=== PATIENT | male | born 1990 | race Caucasian/White ===

== ENCOUNTER 2017-01-02 22:09 | Emergency (ER) | payer BC ==
--- NOTE | 2017-01-02 22:37 | ER Document Report ---
HPI - HPI Patient complains to provider of: sore throat Onset: Yesterday Onset/Duration: Sudden Quality of pain: Achy Severity: Severe Pain Level: 4 Context: Patient presents emergency department with complaints of sore throat for the past day and a half. He also reports he feels weak. Is unsure of fever denies vomiting diarrhea. 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 He is also worried that he may have GC chlamydia because he had oral sex recently. Denies penile discharge or testicular pain. Associated Symptoms: None Exacerbated by: Denies Relieved by: Denies Similar symptoms previously: No Recently seen / treated by doctor: No - DERM Skin Color: Normal, [place] Past Medical History - General Information source: Patient - Social History Smoking Status: Current Every Day Smoker Cigarette use (# per day): Yes Chew tobacco use (# tins/day): No Frequency of alcohol use: None Drug Abuse: None Family History: Reviewed & Not Pertinent Patient has suicidal ideation: No Patient has homicidal ideation: No - Medical History Medical History: Negative Renal/ Medical History: Denies: Hx Peritoneal Dialysis Surgical Hx: Negative Vertical Provider Document - CONSTITUTIONAL Agree With Documented VS: Yes Exam Limitations: No Limitations General Appearance: WD/WN, No Apparent Distress - INFECTION CONTROL TRAVEL OUTSIDE OF THE [place] IN LAST 30 DAYS: No - HEENT HEENT: Atraumatic, Normocephalic, Pharyngeal Erythema - tonsillar hypertrophy, No peritonsillar abscess good clear voice no trismus. negative: Conjuctival Injection, Pharyngeal Exudate - NECK Neck: Normal Inspection, Supple. negative: Lymphadenopathy-Left, Lymphadenopathy-Right - RESPIRATORY Respiratory: Breath Sounds Normal, No Respiratory Distress O2 Sat by Pulse Oximetry: 98 - CARDIOVASCULAR Cardiovascular: Regular Rate, Regular Rhythm - GI/ABDOMEN Gastrointestinal: Abdomen Soft, Abdomen Non-Tender - MUSCULOSKELETAL/EXTREMETIES Musculoskeletal/Extremeties: ADE VAIL - NEURO Level of Consciousness: Awake, Alert, Appropriate Motor/Sensory: No Motor Deficit - DERM Integumentary: Warm, Dry Course - Re-evaluation Re-evalutation: 01/02/17 23:51 Strep test negative. Patient is here on vacation. Discussed gonorrhea and chlamydia. He reports he has had STD's before and honestly think that is what he has now. He reports last oral sex two weeks ago. He is requesting treatment now. We will treat with Decadron, Rocephin and Zithromax and also penicillin. No obvious signs of peritonsillar abscess. Patient was instructed on the symptoms and instructed to return the emergency department for any concerns trouble swallowing difficulty breathing. He verbalized understanding to all instructions. - Vital Signs Vital signs: Temp Pulse Resp BP Pulse Ox 99.0 F 107 H 20 120/76 98 01/02/17 22:20 01/02/17 22:20 01/02/17 22:20 01/02/17 22:20 01/02/17 22:20 Discharge - Discharge Clinical Impression: Sore throat, Possible exposure to STD Condition: Stable Disposition: HOME, SELF-CARE Instructions: Sore Throat ([facility]), Penicillin V K ([facility]), Gonorrhea ([facility]), Chlamydia ([facility]), Rocephin ([facility]), Azithromycin ([facility]), Steroid Medication Injection Additional Instructions: *You have been evaluated for a sore throat, pharyngitis *The strep test was negative. A throat culture is pending for chlamydia and gonorrhea *You have been treated with rocephin and azithromax for possible STD *Take medication as prescribed *Warm salt water gargles and throat lozenges for comfort *Change toothbrush after two days of antibiotics *Do not let anyone drink/eat after you *Good hand washing *Follow-up with a primary care provider for recheck within one week *Return to ED for worsening condition change, needs, trouble swallowing, worsening symptoms, concerns Prescriptions: Penicillin V Potassium [Penicillin Vk 500 mg Tablet] 500 mg PO BID #20 tablet
[2017-01-02] MEDS ORDERED: LIDOCAINE 2% VISCOUS SOLN 20 ML UDCUP PO ONE (23:01)
[2017-01-02] MEDS ORDERED: CEFTRIAXONE INJ 250 MG VIAL IM ONE (23:47)
[2017-01-02] MEDS ORDERED: LIDOCAINE 1% INJ-PF (10 MG/ML) 30 ML SDV INJ ONE (23:47)
[2017-01-02] MEDS ORDERED: AZITHROMYCIN 1 GM SUSP PACKET PO ONE (23:47)
[2017-01-02] MEDS ORDERED: DEXAMETHASONE SOD PHOS INJ 10 MG/1 ML VIAL IM ONE (23:47)
[2017-01-02] MEDS ORDERED: PENICILLIN V POTASSIUM 500 MG TABLET PO ONE (23:48)
[2017-01-03] MEDS ORDERED: ACETAMINOPHEN 325 MG TABLET PO ONE (00:31)
[2017-01-03 00:41] VITALS: BP 118/74
== END 2017-01-03 00:39 | disposition home or self-care (01) ==
LOC: ER 22:09
DX: J02.9 Acute pharyngitis, unspecified (principal); R53.1 Weakness; Z20.2 Contact with and (suspected) exposure to infections with a predominantly sexual mode of transmission; F17.210 Nicotine dependence, cigarettes, uncomplicated
CPT/HCPCS: 99283; 96372; 87491; 87591; 87070; 87880; 87077; J3490 ×2; Q0144; J0696; J1100